=== PATIENT | male | born 1985 | race Caucasian/White ===

== ENCOUNTER 2024-08-20 09:22 | Outpatient (AMB) | payer OTHER, SELFPAY ==
--- NOTE | 2024-08-20 09:46 | A.OFFPC_ITS ---
Vital Signs 08/20/24 09:52 Height 5 ft 11.85 in Weight 235 lb BMI 32.0 BP 122/74 Blood Pressure Location Lt brachial Position Sitting Respiration 16 Pulse 86 Pulse Source Pulse Oximeter Pulse Oximetry (%) 96 Oxygen Delivery Method Room Air Intake Visit Reasons: right arm tendonitis Intake Note: New patient visit. Right arm tendonitis Head Porter Required: No Allergies No Known Allergies Allergy (Verified 08/20/24 09:46) Tobacco use date assessed: 08/20/24 Dental Screening Dental Screen Date: 08/20/24 Did you have a dental visit in the last 12 months?: Yes Did you have a dental problem in the last 6 months where you did not have access to dental care?: No Was dental information given to patient?: Patient has dentist HPI HPI Comments History of Present Illness Details This is a 39-year-old male with no significant past medical history presenting to [facility] care. He has not had a primary care provider in over a decade. He scheduled this appointment to discuss problems with his wrists and hands. He is not sure exactly when symptoms started. He has been using computers more frequently during the past 7-8 years. He also has to lift 25-50 lb loads at work on a regular basis. He plays video games frequently. He endorses pain in his wrists and his fingers. It is associated with intermittent numbness and tingling and he perceives a decrease in his cartridge maker strength. He is right-hand dominant and so the right hand has worse symptoms than the left. He modifies activity as much as he can so that the pain does not become severe. He takes ibuprofen for other aches and pains, but he is unsure if it helps with this. He tried using wrist braces at night but he did not appreciate a difference. Denies swelling or redness associated with symptoms. Denies family history of RA. Denies neck pain associated with this. ROS: Constitutional: No unexplained weight loss, fever, chills or fatigue. Neurologic: No headache, dizziness, ataxia, tremors or seizures. Musculoskeletal: see HPI Skin: No redness. Physical exam: Respiratory: Clear to auscultation. Cardiovascular: S1 S2 regular. No murmurs. Hands/wrists: No visible deformity, discoloration or edema. Positive bilateral Phalen maneuver and Tinel's test. Hands and wrists are nontender to palpation. The right cartridge maker strength is mildly decreased compared to the left. Shoulders: Full range of motion, strength 5/5 bilaterally. Cervical spine: Nontender to palpation, full range of motion. 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 1. Little interest or pleasure in doing things: several days 2. Feeling down, depressed, or hopeless: several days 3. Trouble falling or staying asleep, or sleeping too much: not at all 4. Feeling tired or having little energy: not at all 5. Poor appetite or overeating: not at all 6. Feeling bad about yourself - or that you are a failure or have let yourself or your family down: several days 7. Trouble concentrating on things, such as reading the newspaper or watching television: not at all 8. Moving or speaking so slowly that other people could have noticed. Or the opposite - being so fidgety or restless that you have been moving around a lot more than usual: not at all 9. Thoughts that you would be better off or of hurting yourself in some way: not at all Total score: 3 Depression Screening Interpretation: Positive Depression Screening Done: Yes 65808 - PHQ-9 Billing: Yes Source: Developed by Drs. El Llanes, Niru Henson, Ehsan Pacheco and colleagues, with an educational barbara from [employer]. Thrive Questionnaire Date Thrive assessed: 08/20/24 I am a: Patient What is your living situation today?: I have a steady place to live Within the past 12 months, did the food you bought not last and you didn't have the money to get more?: Never true Within the past 12 months, did you worry whether your food would run out before you got money to buy more?: Never true Do you have trouble paying for medicines?: No Do you have trouble getting transportation to medical appointments?: No Do you have trouble paying your heating and electricity bill?: No Do you have trouble taking care of your child, family member or friend?: No Do you have trouble with day-to-day activities such as bathing, preparing meals, shopping, managing finances, etc.?: No Are you currently unemployed and looking for a job?: No Are you interested in more education?: I choose not to answer this question Please select the resources that you would like help with: None Currently or been in a relationship where the following occur: No concerns reported THRIVE Score: 0 AUDIT C Alcohol Use Questionnaire (AUDIT-C) 1. How often do you have a drink containing alcohol?: Never 3. How often do you have six or more drinks on one occasion?: Never Total Score: 0 VLAD-7 AMB Questionnaire VLAD-7 Date VLAD - 7 assessed: 08/20/24 Feeling nervous, anxious, or on edge: 3 = Nearly every day Not being able to stop or control worryin = More than half the days Worrying too much about different things: 2 = More than half the days Trouble relaxin = More than half the days Being so restless that it is hard to sit still: 0 = Not at all Becoming easily annoyed or irritable: 0 = Not at all Feeling afraid as if something awful might happen: 0 = Not at all Total VALD-7 score (0-4 normal; 5-9 mild; 10-14 moderate; 15-21 severe): 9 Source: Developed by Drs. El Llanes, Niru Henson, Ehsan Pacheco and colleagues, with an educational barbara from [employer]. VLAD-7 Assessment Billing VLAD-7 Assessment Tool: VLAD-7 Assessment 88392 Physical exam (Primary Care) Vital Signs: Last Vital Signs Pulse 86 08/20/24 09:52 Resp 16 10/17/24 09:52 BP 122/74 08/20/24 09:52 Pulse Ox 96 08/20/24 09:52 Oxygen Delivery Method Room Air 08/20/24 09:52 BMI result Body Mass Index 32.0 Tobacco/Smoking Status: Tobacco use Status Tobacco use date assessed 08/20/24 08/20/24 09:55 Patient Tobacco Use Status Former Tobacco user 08/20/24 09:55 e-Cigarette/Vaping Use Former Use (quit 2 years ago 08/20/24 09:55 ) PHQ-9: PHQ-9 Score PHQ-9: Total score 3 08/20/24 10:13 Depression Screening Interpretation: Positive Currently or been in a relationship where the following occur: No concerns reported Coding Level of Care Code New Pt Level 4 (09832) Complex EM visit Add On G2211 Diagnoses Bilateral hand pain M79.641; M79.642 Bilateral carpal tunnel syndrome G56.03 Additional Codes VLAD-7 Assessment Billing - VLAD-7 Assessment Tool: VLAD-7 Assessment 20902 ([id number]) Assessment & Plan Assessment & Plan (1) Bilateral hand pain: Code(s): M79.641 - Pain in right hand; M79.642 - Pain in left hand Category: Medical (2) Bilateral carpal tunnel syndrome: Code(s): G56.03 - Carpal tunnel syndrome, bilateral upper limbs Category: Medical Plan The patient's exam is concerning for bilateral carpal tunnel syndrome. Ordered EMG and bilateral x-rays of the wrists and hands. Refer to hand surgeon. Advised patient he can take [id number] anti-inflammatory medication as needed for pain. We will also check Lyme and rheumatoid factor level. Patient has a physical scheduled next week. Agreeable to fasting labs. Orders: Orders Lipid Panel Today E78.5 - Hyperlipidemia, unspecified, Z00.00 - Encounter for general adult medical examination without abnormal findings, Z13.6 - Encounter for screening for cardiovascular disorders Complete Blood Count Auto Diff Today Z00.00 - Encounter for general adult medical examination without abnormal findings, Z13.6 - Encounter for screening for cardiovascular disorders TSH reflex Free T4 Today Z00.00 - Encounter for general adult medical examination without abnormal findings, Z13.6 - Encounter for screening for cardiovascular disorders XR hand LT min 3V Today G56.03 - Carpal tunnel syndrome, bilateral upper limbs, M79.641 - Pain in right hand, M79.642 - Pain in left hand XR hand RT min 3V Today G56.03 - Carpal tunnel syndrome, bilateral upper limbs, M79.641 - Pain in right hand, M79.642 - Pain in left hand NE electromyogram (EMG) Today G56.03 - Carpal tunnel syndrome, bilateral upper limbs Prostate Specific Antigen Today Z00.00 - Encounter for general adult medical examination without abnormal findings, Z12.5 - Encounter for screening for malignant neoplasm of prostate, Z13.6 - Encounter for screening for cardiovascular disorders Comprehensive Met. Panel Today Z00.00 - Encounter for general adult medical examination without abnormal findings, Z13.6 - Encounter for screening for cardiovascular disorders Rheumatoid Factor Today M79.641 - Pain in right hand, M79.642 - Pain in left hand Lyme IgG/IgM w/reflex to WB Today M79.641 - Pain in right hand, M79.642 - Pain in left hand XR wrist RT min 3V Today G56.03 - Carpal tunnel syndrome, bilateral upper limbs, M79.641 - Pain in right hand, M79.642 - Pain in left hand XR wrist LT min 3V Today G56.03 - Carpal tunnel syndrome, bilateral upper limbs, M79.641 - Pain in right hand, M79.642 - Pain in left hand Referrals Hand Surgery Referral G56.03 - Carpal tunnel syndrome, bilateral upper limbs, M79.641 - Pain in right hand, M79.642 - Pain in left hand
[2024-08-20 09:52] VITALS: BP 122/74; PULSE 86; RESP 16; O2SAT 96; BMI 32.0
== END 2024-08-20 10:25 | disposition home or self-care (01) ==
PROVIDERS: PCP Physician Assistant Medical; Visit Provider Physician Assistant Medical
DX: M79.641 Pain in right hand (principal); M79.642 Pain in left hand; G56.03 Carpal tunnel syndrome, bilateral upper limbs

== ENCOUNTER → 2024-08-20 09:22 | Outpatient (BNVA) | payer OTHER, SELFPAY | PROVIDERS: PCP Physician Assistant Medical; Visit Provider Physician Assistant Medical | DX: M79.641 Pain in right hand (principal); M79.642 Pain in left hand; G56.03 Carpal tunnel syndrome, bilateral upper limbs | CPT/HCPCS: 96127 ==

== ENCOUNTER 2024-08-22 07:23 | Outpatient (REF) | payer OTHER, SELFPAY ==
[2024-08-22 07:56] LABS: MANUAL DIFF FLAG NO
[2024-08-22 08:51] LABS: Basophils Absolute Auto 0.1 X10*3/uL (0.0-0.2); Basophils Percent Auto 0.9 % (0-2); Eosinophils Absolute Auto 0.1 X10*3/uL (0.0-0.4); Eosinophils Percent Auto 2.5 % (0-4); Hematocrit 44.8 % (42.0-52.0); Hemoglobin 14.7 g/dl (14.0-18.0); Imm Gran Abs Auto 0.02 X10*3/uL (0.00-0.03); Imm Gran Pct Auto 0.4 % (0.0-0.4); Lymphocytes Absolute Auto 1.2 X10*3/uL (1.2-4.9); Lymphocytes Percent Auto 22.2 % (20-40); Mean Corpuscular HGB Conc 32.8 g/dl (31.0-36.0); Mean Corpuscular Hemoglobin 29.6 pg (27.0-33.0); Mean Corpuscular Volume 90.3 fL (80.0-98.0); Mean Platelet Volume 11.8 fL (9.4-12.4); Monocytes Absolute Auto 0.4 X10*3/uL (0.1-1.2); Monocytes Percent Auto 6.9 % (2-11); Neutrophils Absolute Auto 3.7 x10*3/uL (2.0-8.3); Neutrophils Percent Auto 67.1 % (45-73); Platelet Count 245 X10*3/uL (160-400); Red Blood Count 4.96 X10*6/uL (4.60-5.80); Red Cell Distribution Width 13.1 % (11.0-16.0); White Blood Count 5.5 X10*3/uL (4.8-10.8)
[2024-08-22 09:25] LABS: Alanine Aminotransferase 20 U/L (0-40); Albumin Level 4.3 g/dL (3.5-5.0); Alkaline Phosphatase 99 U/L (39-117); Anion Gap 12 (12-20); Aspartate Amino Transferase 29 U/L (5-37); Blood Urea Nitrogen 10 mg/dL (9-16); Calcium 9.2 mg/dL (8.4-10.2); Carbon Dioxide 25 mmol/L (22-29); Chloride 107 mmol/L (96-108); Cholesterol 166 mg/dL (<200); Estimated Glomerular Filt Rate > 60; Glucose Random 84 mg/dL (60-115); HDL Cholesterol 46 mg/dL (>40); LDL Cholesterol Calculated 111 mg/dL (<100); Potassium 4.3 mmol/L (3.3-5.1); Sodium 140 mmol/L (135-145); Total Protein 7.4 g/dL (6.5-8.0); Triglycerides 46 mg/dL (<150)
[2024-08-22 09:29] LABS: Rheumatoid Factor < 13.0 IU/mL (<15.0)
[2024-08-22 09:35] LABS: Prostate Specific Antigen 0.98 ng/mL (<0.05-4.0)
[2024-08-22 09:45] LABS: TSH reflex Free T4 1.24 uIU/mL (0.32-4.0)
[2024-08-24 16:44] LABS: Lyme Abs Screen <0.90 index
== END 2024-08-22 07:24 | disposition home or self-care (01) ==
LOC: HO.XRAY 07:23
PROVIDERS: PCP Physician Assistant Medical; Visit Provider Physician Assistant Medical
DX: Z00.00 Encounter for general adult medical examination without abnormal findings (principal); M79.641 Pain in right hand; M79.642 Pain in left hand; Z13.6 Encounter for screening for cardiovascular disorders; E78.5 Hyperlipidemia, unspecified; Z12.5 Encounter for screening for malignant neoplasm of prostate
CPT/HCPCS: 36415; 73110; 73130; 80053; 80061; 84153; 84443; 85025; 86431; 86617; 86618

== ENCOUNTER 2024-08-24 11:53 | Outpatient (AMB) | payer OTHER, SELFPAY ==
--- NOTE | 2024-08-24 12:03 | A.OFFPC_ITS ---
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 We reviewed his lab results that he had done over the weekend which are normal. X-rays have not been read. He was referred to the hand surgeon for suspected carpal tunnel syndrome, and EMG is pending. Patient says for the past couple of years he has had a difficulty with breathing. Patient says that he will intermittently feel like when he breathes he is not getting a full breath and he has to exhale forcefully. He says it feels like a tic. He says it seems stress related because it went away when he was going through a period where he did not have any stress. It does not happen at night or wake him from sleep. He denies wheezing, cough, shortness of breath, chest pain and hemoptysis. He smoked 2 packs per day for 10 years and then switched to vaping for 5 years and stopped this 2 years ago. He has an eye exam scheduled 10/03/24. He is UTD with dental exams. He is getting flu vaccine and a COVID-19 booster in September. He will get a Tetatnus at another time. ROS: Constitutional: No unexplained weight loss, fever, chills, fatigue or night sweats. Eyes: No vision changes, blurry vision, double vision, eye pain, eye redness, eye discharge. ENT: No hearing loss, sneezing, congestion, runny nose or sore throat. Respiratory: No shortness of breath, cough or sputum production. See HPI. Cardiovascular: No chest pain, chest pressure or chest discomfort. No palpitations or pedal edema. Gastrointestinal: No anorexia, nausea, vomiting or diarrhea. No abdominal pain or blood in stool. Genitourinary: No dysuria, hematuria, urinary frequency. Neurologic: No headache, dizziness, syncope, unilateral weakness, ataxia. Musculoskeletal: Bilateral hand and wrist pain discussed at recent office visit. See HPI. Hematologic/Lymphatics: No bleeding or bruising. No painful lymph nodes. Skin: No rash or itching. Endocrine: No cold or heat intolerance. No polyuria or polydipsia. Psychiatric: Patient endorses history of chronic depression and anxiety, but he says he has good coping strategies. He has been in therapy and may restart it. Physical exam: Constitutional: Alert, in no distress. Head: Normocephalic. Eyes: Pupils are equal, round and reactive to light. Extraocular muscles intact. Ear, Nose and Throat: Excessive cerumen in canals. Visualized portions of TMs normal. Normal nasal mucosa. No nasal discharge. No oral lesions. Neck: Supple, Full range of motion. No lymphadenopathy. No palpable thyroid masses. Respiratory: Clear to auscultation. Breathing is nonlabored. Speaking in full sentences. No dyspnea. Cardiovascular: S1 S2 regular. No murmurs. No carotid bruits. Gastrointestinal: Abdomen soft, non-tender, non-distended. Normal bowel sounds. No palpable masses. Genitourinary: Patient deferred. Neurologic: No focal neurological deficits. Symmetric patellar reflexes. Moves all extremities spontaneously. Sensation intact bilaterally. Skin: No rashes or lesions. Musculoskeletal: No gross deformities. Normal range of motion. Extremities: Warm and well perfused. No clubbing, cyanosis or edema. 3+ peripheral pulses bilaterally. 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 Current occupational exposures/hazards: Yes (pesticides, concentrates, poison) Cognitive needs: No Hearing needs: Yes (possible high frequency hearing loss) Vision needs: Yes (glasses) Questionnaire Thrive Questionnaire Date Thrive assessed: 08/20/24 I am a: Patient What is your living situation today?: I have a steady place to live Within the past 12 months, did the food you bought not last and you didn't have the money to get more?: Never true Within the past 12 months, did you worry whether your food would run out before you got money to buy more?: Never true Do you have trouble paying for medicines?: No Do you have trouble getting transportation to medical appointments?: No Do you have trouble paying your heating and electricity bill?: No Do you have trouble taking care of your child, family member or friend?: No Do you have trouble with day-to-day activities such as bathing, preparing meals, shopping, managing finances, etc.?: No Are you currently unemployed and looking for a job?: No Are you interested in more education?: I choose not to answer this question Please select the resources that you would like help with: None Currently or been in a relationship where the following occur: No concerns reported THRIVE Score: 0 VLAD-7 AMB Questionnaire VLAD-7 Date VLAD - 7 assessed: 08/20/24 Becoming easily annoyed or irritable: 0 = Not at all Source: Developed by Drs. El Llanes, Niru Henson, Ehsan Pacheco and colleagues, with an educational barbara from [employer]. Physical exam (Primary Care) Vital Signs: Last Vital Signs Pulse 78 08/24/24 12:04 BP 116/62 08/24/24 12:04 Pulse Ox 99 08/24/24 12:04 Oxygen Delivery Method Room Air 08/24/24 12:04 BMI result Body Mass Index 31.8 Tobacco/Smoking Status: Tobacco use Status Tobacco use date assessed 08/20/24 08/24/24 12:06 Patient Tobacco Use Status Former Tobacco user 08/24/24 12:06 e-Cigarette/Vaping Use Former Use (quit 2 years ago 08/24/24 12:06 ) Thrive Assessment: Date of Thrive Assessment Date Thrive assessed 08/20/24 08/24/24 12:06 Currently or been in a relationship where the following occur: No concerns reported Coding Level of Care Code Est Pt Prev Care 40-64y(77762) Diagnoses Routine physical examination Z00.00 Breathing problem R06.9 Assessment & Plan Assessment & Plan (1) Routine physical examination: Code(s): Z00.00 - Encounter for general adult medical examination without abnormal findings Plan: Patient is seen today for a routine physical. As part of this visit we reviewed the following issues, which are considered and essential part of preventative health in this age group: - Testicular cancer screening, which includes self exam teaching - Blood pressure screening annually - Cholesterol screening - Nutritional and exercise counseling - Counseling of injury prevention including fire prevention, smoke alarms and seat belt usage - Screening for depression - Prevention of and/or testing for infectious diseases - Education about skin cancer - Recommendations about immunizations - Recommendation of an eye exam - Screening for substance abuse (2) Breathing problem: Code(s): R06.9 - Unspecified abnormalities of breathing Category: Medical Plan: Possibly vocal cord dysfunction based on his description. Differential includes asthma, bronchospasm, anxiety. Malignancy less likely since patient has no constitutional symptoms, and these symptoms resolved when he went through a period where he did not have stress. Lungs are clear to auscultation. We will check PFT and chest x-ray and follow up. If workup is nondiagnostic we will refer to pulmonology. Plan Follow up in 8 weeks. Orders: Orders PFT pulmonary function test Today R06.9 - Unspecified abnormalities of breathing XR chest 2V Today R06.9 - Unspecified abnormalities of breathing
[2024-08-24 12:04] VITALS: BP 116/62; PULSE 78; O2SAT 99; BMI 31.8
== END 2024-08-24 12:49 | disposition home or self-care (01) ==
PROVIDERS: PCP Physician Assistant Medical; Visit Provider Physician Assistant Medical
DX: Z00.00 Encounter for general adult medical examination without abnormal findings (principal); R06.9 Unspecified abnormalities of breathing

== ENCOUNTER → 2024-08-24 11:53 | Outpatient (BNVA) | payer OTHER, SELFPAY | PROVIDERS: PCP Physician Assistant Medical; Visit Provider Physician Assistant Medical ==

== ENCOUNTER 2024-11-05 12:53 | Outpatient (REF) | payer OTHER, SELFPAY ==
[2024-11-05 09:36] VITALS: PULSE 81; O2SAT 97
--- NOTE | 2024-11-05 12:59 | PFT_ITS ---
Indication: Dyspnea Spirometry [FEV1 to FVC 80%; FEV1 5.5 L; FVC 6.91 L. No significant response to bronchodilators noted.] Lung Volumes [Total lung capacity 114% predicted; residual volume 130% predicted] Diffusion Capacity [DLCO 105% predicted] Comparisons [None] Interpretation [No obstructive nor restrictive ventilatory defects identified. No significant response to bronchodilators noted. Lung volumes with a trend of hyperinflation and significant air trapping likely secondary to small airways disease. Diffusing capacity is within normal limits. If asthma is in the differential methacholine challenge may be helpful seen for hyperreactive airways. Clinical correlation warranted.] MTDD
--- NOTE | 2024-11-05 13:42 | EMG_ITS ---
Chief complaint: Bilateral hand numbness, on and off for the past year, more consistent in the past month Reason for referral: Evaluate for Carpal Tunnel Syndrome Referred by: Varsha LOPES Procedure done: Bilateral upper extremities NCS/EMG Precautions and/or limitations: None The limb temperature was monitored continuously and remained between 32-36 degrees C during the performance of the NCS. Nerve Conduction Studies Anti Sensory Summary Table ?Stim Site NR Onset (ms) Norm Onset (ms) Peak (ms) Norm Peak (ms) O-P Amp (?V) Norm O-P Amp Site1 Site2 Delta-0 (ms) Dist (cm) Jass (m/s) Norm Jass (m/s) Left Median Anti Sensory (2nd Digit) Wrist ? 3.0 3.6 <3.6 28.4 >10 Wrist 2nd Digit 3.0 14.0 47 Right Median Anti Sensory (2nd Digit) Wrist ? 2.5 3.2 <3.6 37.6 >10 Wrist 2nd Digit 2.5 14.0 56 Left Ulnar Anti Sensory (5th Digit) Wrist ? 2.3 3.0 <3.7 28.7 >15.0 Wrist 5th Digit 2.3 14.0 61 Right Ulnar Anti Sensory (5th Digit) Wrist ? 2.2 2.9 <3.7 34.1 >15.0 Wrist 5th Digit 2.2 14.0 64 Motor Summary Table ?Stim Site NR Onset (ms) Norm Onset (ms) O-P Amp (mV) Norm O-P Amp iAmp (mV) Amp (1st) (%) Site1 Site2 Delta-0 (ms) Dist (cm) Jass (m/s) Norm Jass (m/s) Left Median Motor (Abd Poll Brev) Wrist ? 3.8 <3.9 8.9 >4.5 10.7 100.0 Elbow Wrist 5.3 25.0 47 >45 Elbow ? 9.1 9.7 11.3 109.0 Right Median Motor (Abd Poll Brev) Wrist ? 3.5 <3.9 9.8 >4.5 11.2 100.0 Elbow Wrist 4.7 24.5 52 >45 Elbow ? 8.2 10.3 12.0 105.1 Left Ulnar Motor (Abd Dig Minimi) Wrist ? 2.7 <3.0 5.9 >5 6.9 100.0 B Elbow Wrist 4.2 23.0 55 >45 B Elbow ? 6.9 5.1 6.2 86.4 A Elbow B Elbow 1.8 10.0 56 >45 A Elbow ? 8.7 4.9 6.1 83.1 Right Ulnar Motor (Abd Dig Minimi) Wrist ? 2.6 <3.0 11.5 >5 13.9 100.0 B Elbow Wrist 4.4 24.0 55 >45 B Elbow ? 7.0 10.0 12.2 87.0 A Elbow B Elbow 1.2 10.0 83 >45 A Elbow ? 8.2 9.5 11.7 82.6 Comparison Summary Table ?Stim Site NR Peak (ms) Norm Peak (ms) P-T Amp (?V) Site1 Site2 Delta-P (ms) Norm Delta (ms) Left Median/Radial Dig I Comparison (Digit 1 - 10cm) Median ? 2.1 <2.9 6.7 Median Radial 0.3 Radial ? 2.4 <2.8 10.0 Right Median/Radial Dig I Comparison (Digit 1 - 10cm) Median ? 2.6 <2.9 47.0 Median Radial 0.2 Radial ? 2.4 <2.8 20.9 EMG ?Side Muscle Nerve Root Ins Act Fibs Psw Amp Dur Poly Recrt Int Pat Comment Right 1stDorInt Ulnar C8-T1 Nml Nml Nml Nml Nml 0 Nml Complete Right FlexCarRad Median C6-7 Nml Nml Nml Nml Nml 0 Nml Complete Right Biceps Musculocut C5-6 Nml Nml Nml Nml Nml 0 Nml Complete Right Triceps Radial C6-7-8 Nml Nml Nml Nml Nml 0 Nml Complete Right Deltoid Axillary C5-6 Nml Nml Nml Nml Nml 0 Nml Complete Left 1stDorInt Ulnar C8-T1 Nml Nml Nml Nml Nml 0 Nml Complete Left FlexCarRad Median C6-7 Nml Nml Nml Nml Nml 0 Nml Complete Left Biceps Musculocut C5-6 Nml Nml Nml Nml Nml 0 Nml Complete Left Triceps Radial C6-7-8 Nml Nml Nml Nml Nml 0 Nml Complete Left Deltoid Axillary C5-6 Nml Nml Nml Nml Nml 0 Nml Complete FINDINGS: All motor and sensory nerves tested showed normal latencies, amplitudes and conduction velocities. Concentric needle EMG was performed in selected muscles of the bilateral upper extremities. Study did not reveal signs of electric abnormalities as shown in the table above. IMPRESSION: 1. This is a normal study. 2. There is no electrodiagnostic evidence for median neuropathy, ulnar neuropathy, brachial plexopathy, or cervical radiculopathy. Thank you for your kind referral. Myrna Portillo MD, JOHNNIE Board Certified, [place] Board of Physical Medicine and Rehabilitation (ABPMR) Board Certified, [place] Board of Electrodiagnostic Medicine (ABEM) CODIN [phone] x 2 MTDD
== END 2024-11-05 12:54 | disposition home or self-care (01) ==
LOC: HO.RESP 12:53
PROVIDERS: PCP Physician Assistant Medical; Visit Provider Physician Assistant Medical
DX: R06.9 Unspecified abnormalities of breathing (principal); G56.03 Carpal tunnel syndrome, bilateral upper limbs
CPT/HCPCS: 94010; 94640; 94727; 94729; 95886; 95911

== ENCOUNTER → 2024-11-05 12:59 | Outpatient (BNV) | payer OTHER, SELFPAY | PROVIDERS: PCP Physician Assistant Medical; Visit Provider Hospitalist | DX: R06.09 Other forms of dyspnea (principal) | CPT/HCPCS: 94060; 94727; 94729 ==

== ENCOUNTER → 2024-11-05 13:42 | Outpatient (BNV) | payer OTHER, SELFPAY | PROVIDERS: PCP Physician Assistant Medical; Visit Provider Physical Medicine & Rehabilitation | DX: G56.01 Carpal tunnel syndrome, right upper limb (principal) | CPT/HCPCS: 95886; 95909 ==

== ENCOUNTER 2024-11-12 09:41 | Outpatient (REF) | payer OTHER, SELFPAY ==
--- NOTE | ~2024-11-12 | XR_ITS ---
CLINICAL HISTORY: R06.9 - Unspecified abnormalities of breathing 2 view chest x-ray Comparison: None Findings: The lungs are clear. Normal size heart. No acute fracture. IMPRESSION: 1. No acute findings. This document has been electronically signed by: Nilesh So MD on 11/13/2024 08:37:28
--- NOTE | ~2024-11-12 | XR_ITS ---
CLINICAL HISTORY: M79.641 - Pain in right hand 4 view right wrist Comparison: None Findings: No fractures or dislocations. No significant arthritic change or erosions. No radiopaque foreign body. IMPRESSION: 1. No acute findings This document has been electronically signed by: Nilesh So MD on 11/13/2024 08:38:11
--- NOTE | ~2024-11-12 | XR_ITS ---
CLINICAL HISTORY: M79.641 - Pain in right hand 4 view left wrist Comparison: None Findings: No fractures or dislocations. No significant loss of joint space, osteophyte, or erosions. No radiopaque foreign body. IMPRESSION: 1. No acute findings This document has been electronically signed by: Nilesh So MD on 11/13/2024 08:37:54
== END 2024-11-12 09:42 | disposition home or self-care (01) ==
LOC: HO.XRAY 09:41
PROVIDERS: PCP Physician Assistant Medical; Visit Provider Physician Assistant Medical
DX: M79.641 Pain in right hand (principal); M79.642 Pain in left hand; G56.03 Carpal tunnel syndrome, bilateral upper limbs; R06.9 Unspecified abnormalities of breathing
CPT/HCPCS: 71046; 73110

== ENCOUNTER → 2024-11-12 09:44 | Outpatient (BNV) | payer OTHER, SELFPAY | PROVIDERS: PCP Physician Assistant Medical; Visit Provider Specialist | DX: M79.641 Pain in right hand (principal); M79.642 Pain in left hand; R06.89 Other abnormalities of breathing | CPT/HCPCS: 71046; 73110 ==

== ENCOUNTER 2024-12-08 08:56 | Outpatient (AMB) | payer OTHER, SELFPAY ==
--- NOTE | 2024-12-08 09:03 | MHC.OFFVIS ---
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 states his right is worse. States he is having CTS that comes and goes. States its worse when he is lifting. He wears a brace for his right hand only at night. He recalls about 5-6 yrs ago he hyper extended his thumb and believes this might be the cause to his numbness. ROM is ok but painful at time. Denies O.T, injections or surgery to hands. EMG done. 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 He complains of pain primarily in his hands, but says this occasionally extends into his forearms and elbows. He says this began in the last few years, but has worsened in the last year. He also complains of tingling in his hands. Symptoms intermittent, worse with activities such as heavy lifting or other work at his job. He wears a right wrist brace at night and denies any other treatment options. He says his symptoms also worsen with extensive video game playing He denies any gait abnormality, but says he has occasional numbness in his feet. He says he hyperextended his right thumb in ~2019, and has had painful ROM of his thumb occasionally. 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 Current occupational exposures/hazards: Yes (pesticides, concentrates, poison) Cognitive needs: No Hearing needs: Yes (possible high frequency hearing loss) Vision needs: Yes (glasses) Review of Systems Const All systems reviewed & are unremarkable except as noted in HPI and below Physical Exam Vital Signs: BMI result Body Mass Index 33.5 Const General: cooperative, healthy appearing and no acute distress Orientation/consciousness: patient oriented x3 HEENT Head: Yes normocephalic and Yes atraumatic Eyes EOM: EOMs intact bilaterally Resp Effort & Inspection: normal respiratory effort and able to speak in complete sentences Cardio Jugular venous distension: no JVD Skin General skin exam: turgor normal Rashes: no rashes Neuro General: patient oriented x3 Extrem Other: Evaluation of Bilateral Upper Extremity: The patient is alert, oriented, and in no acute distress Neuro: Median, Ulnar, Radial nerves motor and sensory intact and sensation is normal to the tips of all digits No thenar or intrinsic wasting Good APB muscle belly firing and good finger cross Vascular: Cap refill brisk ROM: He can make a fist and extend all his digits No locking or catching Full & symmetrical wrist ROM without pain Skin: No lacerations or abrasions. General: No Ecchymosis. No Erythema or evidence of infection. No swelling Patient complains of occasional pain radiating up his mid forearms into his elbow No pain today while in clinic. No tenderness or pain elicited while today in clinic Radiographs: 3 views of the bilateral wrist from 11/13/24 were reviewed by me today in clinic. They show no fractures, dislocations, or arthritic changes. Nerve Conduction Study: IMPRESSION: 1. This is a normal study. 2. There is no electrodiagnostic evidence for median neuropathy, ulnar neuropathy, brachial plexopathy, or cervical radiculopathy. Myrna Portillo MD, JOHNNIE 11/05/24 Psych Appearance: grossly normal Affect: normal affect Attitude: cooperative Assessment & Plan Assessment & Plan (1) Bilateral hand pain: Code(s): M79.641 - Pain in right hand; M79.642 - Pain in left hand Category: Medical (2) Bilateral hand numbness: Code(s): R20.0 - Anesthesia of skin Category: Medical Plan Assessment & Plan: 1. Bilateral hand pain Radiating into mid-forearm & elbows Intermittent but daily I educated him about this condition I discussed activity modification with him He will be mindful of which activities are causing him the most pain, and try to modify these accordingly I ordered OT hand therapy to work on normalizing hand function No other intervention indicated at this time He will follow up prn 2. Bilateral hand tingling Patient reports intermittent tingling to all digits bilaterally, worse with activities NCS from 11/05/24 was normal I educated him about carpal & cubital tunnel syndrome He will be mindful of his symptoms going forward, and for any changes in his sensation No surgical intervention indicated at this time If his symptoms persist or worsen we may consider a repeat NCS in the future Scribed for Bernie Herrera MD by Ramirez Leiva, bacteriologist medical, on 12/08/24 at 9:30 AM, EST. Orders: Orders OT Evaluation and Treatment Today M79.641 - Pain in right hand, M79.642 - Pain in left hand, R20.0 - Anesthesia of skin Coding Level of Care Code New Pt Level 4 (31601) Diagnoses Bilateral hand pain M79.641; M79.642 Bilateral hand numbness R20.0
[2024-12-08 09:05] VITALS: BMI 33.5
== END 2024-12-08 09:43 | disposition home or self-care (01) ==
PROVIDERS: PCP Physician Assistant Medical; Visit Provider Orthopaedic Surgery
DX: M79.641 Pain in right hand (principal); M79.642 Pain in left hand; R20.0 Anesthesia of skin
CPT/HCPCS: 99204

== ENCOUNTER → 2024-12-08 08:56 | Outpatient (BNVA) | payer OTHER, SELFPAY | PROVIDERS: PCP Physician Assistant Medical; Visit Provider Orthopaedic Surgery ==

== ENCOUNTER 2024-12-14 09:26 | Outpatient (AMB) | payer OTHER, SELFPAY ==
--- NOTE | 2024-12-13 12:39 | MHC.OFFVIS ---
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 He also reported vaping x 5 years, quit 2 years ago. He was referred by PCP for pulmonary evaluation for ongoing dyspnea. He reports intermittent inability to fully inspire with associated dry cough and PCP recently sent for PFT, which was suggestive of asthma. He denies any dyspnea, wheezing, or chest tightness. He denies prior dx of asthma/COPD. He endorses seasonal allergies, no recent allergy testing. Using Zyrtec daily with good effect. He has a dog at home. 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 He does use a Tyvek suit and respirator. He does note that he has become more sensitive to chemicals over the years. He reports son with asthma, otherwise denies any pertinent family history. Of note, he stated that he was treated for TB as a child. Recent CXR unremarkable. 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 Current occupational exposures/hazards: Yes (pesticides, concentrates, poison) Cognitive needs: No Hearing needs: Yes (possible high frequency hearing loss) Vision needs: Yes (glasses) Review of Systems Const Denies chills, Denies excessive sweating, Denies fever(s), Denies headache(s) and Denies night sweats Eyes Denies dry eyes and Reports itchy eyes ENT Reports Normal hearing present, Denies headache(s), Reports nasal congestion, Reports nasal discharge, Reports post nasal drip and Denies sore throat Card Denies chest pain, Denies chest pain at rest, Denies chest pain with activity, Denies claudication, Denies leg edema, Denies dyspnea, Denies dyspnea on exertion, Denies orthopnea and Denies paroxysmal nocturnal dyspnea Resp Denies change in phlegm color, Denies chest congestion, Reports cough, Denies hemoptysis, Denies excessive phlegm production, Denies pain on inspiration, Denies pain with cough, Denies dyspnea, Denies dyspnea on exertion, Denies stridor and Denies wheezing Musc Denies myalgias Neuro Reports Normal hearing present and Denies headache(s) Endo Denies excessive sweating Suhail/Lymph Denies lymphadenopathy Aller/Immun Reports itchy eyes and Denies wheezing Physical Exam Vital Signs: Last Vital Signs Pulse 88 12/14/24 09:27 BP 114/66 12/14/24 09:27 Pulse Ox 100 12/14/24 09:27 Oxygen Delivery Method Room Air 12/14/24 09:27 BMI result Body Mass Index 34.1 Const General: cooperative, healthy appearing, comfortable, no acute distress, well developed and alert Nutritional Appearance: obese Orientation/consciousness: patient oriented x3 Limitations: no limitations HEENT Head: Yes normal to inspection, Yes normocephalic and Yes atraumatic Ears: hearing grossly normal bilaterally and external ears normal Eyes General: appearance normal, both eyes and all related structures Eyelids: Yes eyelids normal Sclerae: sclerae normal EOM: EOMs intact bilaterally Neck Neck: Yes normal visual inspection and Yes no lymphadenopathy Lymphatic: no lymphadenopathy noted Chest Chest palpation & inspection: normal inspection of the chest Resp Effort & Inspection: normal respiratory effort, able to speak in complete sentences, no audible wheezes, no cough, no stridor, not tachypneic, no tripod positioning and no use of accessory muscles Auscultation: diminished lung sounds Cardio Jugular venous distension: no JVD Rate: regular rate Rhythm: regular rhythm Skin Other: warm, dry General skin exam: no rashes or lesions noted Neuro General: patient oriented x3 Cranial nerves: Yes Normal hearing present Cognition (Neuro): normal cognition Gait exam (Neuro): Normal gait present Extrem General: Yes normal to inspection, Yes capillary refill normal, Yes no clubbing, cyanosis or edema and Yes no pedal edema Psych Appearance: grossly normal and well kempt Speech and movement: Normal speech and movement present and Clear speech present Affect: normal affect Attitude: cooperative Thought process: Normal thought process present Thought content: Normal thought content present Insight: Good insight present (Psych) Judgement: Good judgement present (Psych) Results Reviewed Results Reviewed: [address] [address] XRay Report Signed Patient: Daryn Barrera MR#: [id number] : 1985 Acct:[id number] Age/Sex: 39 / M ADM Date: 11/12/24 Loc: [facility] Attending Dr: Maisha LOPES Ordering Physician: Maisha Cloud Date of Service: 11/12/24 Procedure(s): XR chest 2V Accession Number(s): [id number] cc: Maisha Cloud~ CLINICAL HISTORY: R06.9 - Unspecified abnormalities of breathing 2 view chest x-ray Comparison: None Findings: The lungs are clear. Normal size heart. No acute fracture. IMPRESSION: 1. No acute findings. This document has been electronically signed by: Nilesh So MD on 11/13/2024 08:37:28 Dictated By: Nilesh So MD Signed By: <Electronically signed by Nilesh So MD in OV> 11/13/24837 DD/ 6 TD/TT: 11/13/24836 Distribution Superintendent: Assessment & Plan Assessment & Plan (1) Asthma: Code(s): J45.909 - Unspecified asthma, uncomplicated Category: Medical (2) Personal history of tobacco use: Code(s): Z87.891 - Personal history of nicotine dependence Category: Social Hx (3) Environmental allergies: Code(s): Z91.09 - Other allergy status, other than to drugs and biological substances Category: Medical (4) Exposure to silica: Code(s): Z77.29 - Contact with and (suspected) exposure to other hazardous substances Category: Medical (5) Chronic cough: Code(s): R05.3 - Chronic cough Category: Medical Plan Reviewed PFT which revealed no obstructive nor restrictive ventilatory defects identified. No significant response to bronchodilators noted, except in small to medium airways. Lung volumes with a trend of hyperinflation and significant air trapping likely secondary to small airways disease. Diffusing capacity is within normal limits. Will empirically start on Breo. Discussed importance of good oral hygiene to prevent thrush. Will also send for RAST to assess for an allergic component. Prior CXR unremarkable, however patient with significant chemical exposures, specifically silica and worsening respiratory symptoms. Will send for chest CT to evaluate for underlying parenchymal condition. All questions were answered and patient is in agreement of plan. Will follow up in 6-8 weeks or sooner if needed. Orders: Orders CT chest wo IV con Today R05.3 - Chronic cough, Z77.29 - Contact with and (suspected) exposure to other hazardous substances, Z87.891 - Personal history of nicotine dependence Resp Allergy Profile Region I Today Z91.09 - Other allergy status, other than to drugs and biological substances Complete Blood Count Auto Diff Today Z91.09 - Other allergy status, other than to drugs and biological substances Immunoglobulin E Today Z91.09 - Other allergy status, other than to drugs and biological substances Medications: New fluticasone furoate-vilanterol 100-25 mcg/dose (Breo Ellipta) 1 inh inhalation DAILY 60 ea 3RF Coding Level of Care Code New Pt Level 4 (07657) Diagnoses Asthma J45.909 Personal history of tobacco use Z87.891 Environmental allergies Z91.09 Exposure to silica Z77.29 Chronic cough R05.3
[2024-12-14 09:27] VITALS: BP 114/66; PULSE 88; O2SAT 100; BMI 34.1
== END 2024-12-14 10:07 | disposition home or self-care (01) ==
PROVIDERS: PCP Physician Assistant Medical; Referring Provider Physician Assistant Medical; Visit Provider Nurse Practitioner Family
DX: J45.909 Unspecified asthma, uncomplicated (principal); Z87.891 Personal history of nicotine dependence; Z91.09 Other allergy status, other than to drugs and biological substances; Z77.29 Contact with and (suspected) exposure to other hazardous substances; R05.3 Chronic cough
CPT/HCPCS: 99204

== ENCOUNTER 2024-12-14 09:26 | Outpatient (REF) | payer OTHER, SELFPAY ==
[2024-12-14 10:30] LABS: MANUAL DIFF FLAG NO
[2024-12-14 10:45] LABS: Basophils Absolute Auto 0.1 X10*3/uL (0.0-0.2); Basophils Percent Auto 0.8 % (0-2); Eosinophils Absolute Auto 0.2 X10*3/uL (0.0-0.4); Eosinophils Percent Auto 2.7 % (0-4); Hematocrit 43.8 % (42.0-52.0); Hemoglobin 14.3 g/dl (14.0-18.0); Imm Gran Abs Auto 0.03 X10*3/uL (0.00-0.03); Imm Gran Pct Auto 0.5 % (0.0-0.4); Lymphocytes Absolute Auto 1.4 X10*3/uL (1.2-4.9); Lymphocytes Percent Auto 20.9 % (20-40); Mean Corpuscular HGB Conc 32.6 g/dl (31.0-36.0); Mean Corpuscular Hemoglobin 29.5 pg (27.0-33.0); Mean Corpuscular Volume 90.5 fL (80.0-98.0); Mean Platelet Volume 10.9 fL (9.4-12.4); Monocytes Absolute Auto 0.4 X10*3/uL (0.1-1.2); Monocytes Percent Auto 6.6 % (2-11); Neutrophils Absolute Auto 4.6 x10*3/uL (2.0-8.3); Neutrophils Percent Auto 68.5 % (45-73); Platelet Count 227 X10*3/uL (160-400); Red Blood Count 4.84 X10*6/uL (4.60-5.80); Red Cell Distribution Width 12.8 % (11.0-16.0); White Blood Count 6.7 X10*3/uL (4.8-10.8)
[2024-12-18 22:44] LABS: Class Alternaria alternata 0; Class Aspergillus fumigatus 0; Class Bermuda Grass 0; Class Birch 1; Class Cat Dander 0; Class Cladosporium herbarum 0; Class Cockroach 0; Class Common Ragweed 0; Class Cottonwood 0; Class Derm. pterony 0/1; Class Dermatophagoides farinae 0; Class Dog Dander 0; Class Elm 0; Class Maple Box Elder 0; Class Mountain Cedar 0; Class Mouse Urine Protein 0; Class Mugwort 0; Class Oak 0/1; Class Penicillium crysogenum 0; Class Rough Pigweed 0; Class Sheep Sorrel 0; Class Sycamore 0; Class Timothy Grass 0/1; Class Walnut Tree 0; Class White Ash 0; Class White Mulberry 0; D002 - IgE D farinae <0.10 kU/L; E001 - IgE Cat Dander <0.10 kU/L; E005 - IgE Dog Dander <0.10 kU/L; E072-IgE Mouse Urine <0.10 kU/L; G002 IgE Bermuda Grass <0.10 kU/L; G006 - IgE Timothy Grass 0.12 kU/L; I006-IgE Cockroach, German <0.10 kU/L; Immunoglobulin E 24 kU/L (<OR=114); M001 IgE Penicillium chrysogen <0.10 kU/L; M002 - IgE Cladosporium herbar <0.10 kU/L; M003 - IgE Aspergillus fumigat <0.10 kU/L; M006 - IgE Alternaria alternat <0.10 kU/L; T001 IgE Maple/Box Elder <0.10 kU/L; T003 IgE Common Silver Birch 0.48 kU/L; T006 - IgE Cedar, Mountain <0.10 kU/L; T007 - IgE Oak, White 0.32 kU/L; T008 IgE Elm, American <0.10 kU/L; T010 - IgE Walnut <0.10 kU/L; T011 - IgE Maple Leaf Sycamore <0.10 kU/L; T014 - IgE Cottonwood <0.10 kU/L; T015 - IgE Ash, White <0.10 kU/L; T070 - IgE White Mulberry <0.10 kU/L; W001 - IgE Ragweed, Short <0.10 kU/L; W006 - IgE Mugwort <0.10 kU/L; W014 IgE Pigweed, Common <0.10 kU/L; W018 IgE Sheep Sorrel <0.10 kU/L
== END 2024-12-14 09:27 | disposition home or self-care (01) ==
LOC: HO.LAB 09:26
PROVIDERS: PCP Physician Assistant Medical; Referring Provider Physician Assistant Medical; Visit Provider Nurse Practitioner Family
DX: Z91.09 Other allergy status, other than to drugs and biological substances (principal)
CPT/HCPCS: 36415; 82785; 85025; 86003

== ENCOUNTER 2024-12-30 07:23 | Outpatient (REF) | payer OTHER, SELFPAY ==
--- NOTE | ~2024-12-30 | CT_ITS ---
CLINICAL HISTORY: R05.3 - Chronic cough CT chest without contrast Comparison: CR - XR CHEST 2V - 11/12/24 10:19 EST Findings: Lungs are clear. No pleural effusion, pneumothorax, or infiltrate. No pulmonary nodules. Overall heart size is within normal limits. No enlarged lymph nodes. Thoracic aorta is nonaneurysmal. No free fluid or free air within the upper abdomen. No focal bony lesions. Incidental note is made of bilateral nipple piercings. IMPRESSION: 1. Unremarkable chest CT. This document has been electronically signed by: Mahesh Gomez MD on 12/30/2024 10:21:50
== END 2024-12-30 07:24 | disposition home or self-care (01) ==
LOC: HO.CT 07:23
PROVIDERS: PCP Physician Assistant Medical; Visit Provider Nurse Practitioner Family
DX: R05.3 Chronic cough (principal); Z77.29 Contact with and (suspected) exposure to other hazardous substances; Z87.891 Personal history of nicotine dependence
CPT/HCPCS: 71250

== ENCOUNTER → 2024-12-30 07:25 | Outpatient (BNV) | payer OTHER, SELFPAY | PROVIDERS: PCP Physician Assistant Medical; Visit Provider Radiology Diagnostic Radiology | DX: R05.3 Chronic cough (principal) | CPT/HCPCS: 71250 ==

== ENCOUNTER 2025-01-18 06:54 | Outpatient (RCR) | payer OTHER, SELFPAY ==
--- NOTE | 2024-12-23 08:58 | MHC.OT.EP ---
[address] [phone] Occupational Therapy Plan of Care Patient Name: Daryn Barrera Date of Evaluation: 12/23/24 Diagnosis: B Hand numbness Pain Location: 4-6.5 Right hand is worse Pain Score: 4 Pain Scale Used: Numeric (0 - 10) Aggravating Factors: Could not Quantify Alleviating Factors: 400 mg of ibuprofen every 6 hrs Assessment: Pt is a 39 yr. old R hand dominant male who reports B intermittent numbness and tingling over the past few yrs. He reports in the last 6 mos it has gotten worse, but it is still not constant and he cannot quantify a time of day or activity which exacerbates his sx's. Pt reports constant use of his hands while at work and he enjoys computer games, and hiking w/ walking poles in his downtime. He saw the MD who sent him for a nerve conduction study but the study was negative for nerve entrapment. He has a (+) tinels at B wrists as well as a (+) Phalen's test, and mild thenar wasting. 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 Thank you once again for your referral.
--- NOTE | 2025-01-22 07:59 | MHC.OT.DC ---
[address] [phone] F: [phone] Occupational Therapy Discharge Note Patient Name: Daryn Barrera Provider: Dr Bernie Herrera Diagnosis: B Hand numbness Date of Evaluation: 12/23/24 Date of Discharge: 01/22/25 Treatments to Date: 8 Discharge Status: Achieved Goals Independent with HEP Discharge Summary: Daryn was referred to OT w/ B/L hand numbness. He has progressed through course of OT with STG met and good progress through LTG. He has good follow through w/ HEP and recommendations for postural awareness and activity modification, but will continue to need self awareness w/ work and leisure tasks (long time spent with video games) to minimize symptoms. Electronically Signed By: ADDIE Diaz/L CHT Reviewed/agree with student documentation: Therapist: Please Sign and return to therapist, thank you for your referral.
== END 2025-01-22 08:00 | disposition home or self-care (01) ==
LOC: HO.OT 06:54
PROVIDERS: PCP Physician Assistant Medical; Visit Provider Orthopaedic Surgery
DX: R20.0 Anesthesia of skin (principal); M79.641 Pain in right hand; M79.642 Pain in left hand
CPT/HCPCS: 97035; 97110; 97140; 97166; 97535

== ENCOUNTER 2025-02-01 09:37 | Outpatient (AMB) | payer OTHER, SELFPAY ==
[2025-02-01 09:48] VITALS: BP 126/64; PULSE 84; O2SAT 98; BMI 33.8
--- NOTE | 2025-02-01 09:48 | A.OFFVIS_ITS ---
Vital Signs 02/01/25 09:48 Height 5 ft 11 in Weight 242 lb 8.136 oz BMI 33.8 BP 126/64 Blood Pressure Location Rt brachial Position Sitting Pulse 84 Pulse Source Pulse Oximeter Pulse Oximetry (%) 98 Oxygen Delivery Method Room Air Intake Visit Reasons: Abnormal PFT Gravity Prospector Required: No Manager Of Loss Prevention Operations: Manager Of Loss Prevention Operations offered & declined Accompanied by: Self / Same As Patient Allergies No Known Allergies Allergy (Verified 02/01/25 09:52) Medication List - Last Reconciled 02/01/25 by Edna Etienne LPN cetirizine (All Day Allergy (cetirizine)) 10 mg PO DAILY PRN fluticasone furoate-vilanterol 100-25 mcg/dose (Breo Ellipta) 1 inh inhalation DAILY ibuprofen 200 mg PO Q6H PRN multivitamin 1 tab PO DAILY HPI HPI Abnormal PFT: Details: Daryn is a pleasant 39 year old male, former smoker, quit 8 years ago with 20+ pyh, with underlying asthma. Patient reported vaping nicotine x 5 years, quit 2 years ago, now smoking marijuana daily, occasionally vaping THC. At the last visit he was started on Breo with resolution of inability to fully inspire however continues to dry cough. Denies any dyspnea, wheezing, or chest tightness. He endorses seasonal allergies, which contribute to sinus symptoms and occasional post nasal drip. He has been using Zyrtec daily with moderate effect. 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 Today he presents to review RAST and Chest CT. He denies any visits to urgent care or hospitalizations related to respiratory distress since the last visit. 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 Current occupational exposures/hazards: Yes (pesticides, concentrates, poison) Cognitive needs: No Hearing needs: Yes (possible high frequency hearing loss) Vision needs: Yes (glasses) Review of Systems Const Denies chills, Denies excessive sweating, Denies fever(s), Denies headache(s) and Denies night sweats Eyes Denies dry eyes and Reports itchy eyes ENT Reports Normal hearing present, Denies headache(s), Reports nasal congestion, Reports nasal discharge, Reports post nasal drip and Denies sore throat Card Denies chest pain, Denies chest pain at rest, Denies chest pain with activity, Denies claudication, Denies leg edema, Denies dyspnea, Denies dyspnea on exertion, Denies orthopnea and Denies paroxysmal nocturnal dyspnea Resp Denies change in phlegm color, Denies chest congestion, Reports cough, Denies hemoptysis, Denies excessive phlegm production, Denies pain on inspiration, Denies pain with cough, Denies dyspnea, Denies dyspnea on exertion, Denies stridor and Denies wheezing Musc Denies myalgias Neuro Reports Normal hearing present and Denies headache(s) Endo Denies excessive sweating Suhail/Lymph Denies lymphadenopathy Aller/Immun Reports itchy eyes and Denies wheezing Physical Exam Vital Signs: Last Vital Signs Pulse 84 02/01/25 09:48 BP 126/64 02/01/25 09:48 Pulse Ox 98 02/01/25 09:48 Oxygen Delivery Method Room Air 02/01/25 09:48 BMI result Body Mass Index 33.8 Const General: cooperative, healthy appearing, comfortable, no acute distress, well developed and alert Nutritional Appearance: obese Orientation/consciousness: patient oriented x3 Limitations: no limitations HEENT Head: Yes normal to inspection, Yes normocephalic and Yes atraumatic Ears: hearing grossly normal bilaterally and external ears normal Eyes General: appearance normal, both eyes and all related structures Eyelids: Yes eyelids normal Sclerae: sclerae normal EOM: EOMs intact bilaterally Neck Neck: Yes normal visual inspection and Yes no lymphadenopathy Lymphatic: no lymphadenopathy noted Chest Chest palpation & inspection: normal inspection of the chest Resp Effort & Inspection: normal respiratory effort, able to speak in complete sentences, no audible wheezes, no cough, no stridor, not tachypneic, no tripod positioning and no use of accessory muscles Auscultation: diminished lung sounds Cardio Jugular venous distension: no JVD Rate: regular rate Rhythm: regular rhythm Skin Other: warm, dry General skin exam: no rashes or lesions noted Neuro General: patient oriented x3 Cranial nerves: Yes Normal hearing present Cognition (Neuro): normal cognition Gait exam (Neuro): Normal gait present Extrem General: Yes normal to inspection, Yes capillary refill normal, Yes no clubbing, cyanosis or edema and Yes no pedal edema Psych Appearance: grossly normal and well kempt Speech and movement: Normal speech and movement present and Clear speech present Affect: normal affect Attitude: cooperative Thought process: Normal thought process present Thought content: Normal thought content present Insight: Good insight present (Psych) Judgement: Good judgement present (Psych) Results Reviewed Results Reviewed: [address] [address] [address] Scan Report Signed Patient: Daryn Barrera MR#: [id number] : 1985 Acct:[id number] Age/Sex: 39 / M ADM Date: 12/30/24 Loc: HO.CT Attending Dr: Daniela Vargas NP Ordering Physician: Daniela Vargas NP Date of Service: 12/30/24 Procedure(s): CT chest wo IV con Accession Number(s): [id number] cc: Maisha Cloud; Daniela Vargas NP~ Report Number: [id number]: Total DLP = 209.00 mGy-cm CLINICAL HISTORY: R05.3 - Chronic cough CT chest without contrast Comparison: CR - XR CHEST 2V - 11/12/24 10:19 EST Findings: Lungs are clear. No pleural effusion, pneumothorax, or infiltrate. No pulmonary nodules. Overall heart size is within normal limits. No enlarged lymph nodes. Thoracic aorta is nonaneurysmal. No free fluid or free air within the upper abdomen. No focal bony lesions. Incidental note is made of bilateral nipple piercings. IMPRESSION: 1. Unremarkable chest CT. This document has been electronically signed by: Mahesh Gomez MD on 12/30/2024 10:21:50 Dictated By: Mahesh Gomez MD Signed By: <Electronically signed by Mahesh Gomez MD in OV> 12/30/24 1022 DD/ 1021 TD/TT: 12/30/24 1021 Director Oncology: Assessment & Plan Assessment & Plan (1) Asthma: Code(s): J45.909 - Unspecified asthma, uncomplicated Category: Medical (2) Personal history of tobacco use: Code(s): Z87.891 - Personal history of nicotine dependence Category: Social Hx (3) Environmental allergies: Code(s): Z91.09 - Other allergy status, other than to drugs and biological substances Category: Medical (4) Exposure to silica: Code(s): Z77.29 - Contact with and (suspected) exposure to other hazardous substances Category: Medical (5) Chronic cough: Code(s): R05.3 - Chronic cough Category: Medical Plan Reviewed chest CT which was unremarkable. RAST + for multiple environmental allergens. Discussed ways to minimize allergen exposures. He reports moderate effect with Breo however continues with dry cough, will increase to 200 mcg. Encouraged use of nasal sprays/sinus rinses to aid in sinus symptoms which may be contributing to cough. All questions were answered and patient is in agreement of plan. Will follow up in 3 months or sooner if needed. Medications: New fluticasone furoate-vilanterol 200-25 mcg/dose (Breo Ellipta) 1 inh inhalation DAILY 60 ea 3RF Discontinued fluticasone furoate-vilanterol 100-25 mcg/dose (Breo Ellipta) Discontinued Reason: Patient Completed Course 1 inh inhalation DAILY 60 ea 3RF Coding Level of Care Code Est Pt Level 4 (94402) Diagnoses Asthma J45.909 Personal history of tobacco use Z87.891 Environmental allergies Z91.09 Exposure to silica Z77.29 Chronic cough R05.3
== END 2025-02-01 10:14 | disposition home or self-care (01) ==
PROVIDERS: PCP Physician Assistant Medical; Visit Provider Nurse Practitioner Family
DX: J45.909 Unspecified asthma, uncomplicated (principal); Z87.891 Personal history of nicotine dependence; Z91.09 Other allergy status, other than to drugs and biological substances; Z77.29 Contact with and (suspected) exposure to other hazardous substances; R05.3 Chronic cough
CPT/HCPCS: 99214

== ENCOUNTER 2025-04-19 09:49 | Outpatient (AMB) | payer OTHER, SELFPAY ==
[2025-04-19 09:51] VITALS: BP 102/70; PULSE 77; O2SAT 97; BMI 33.4
--- NOTE | 2025-04-19 09:51 | A.OFFVIS_ITS ---
Vital Signs 04/19/25 09:51 Height 5 ft 11 in Weight 239 lb 3.225 oz BMI 33.4 BP 102/70 Blood Pressure Location Rt brachial Position Sitting Pulse 77 Pulse Source Pulse Oximeter Pulse Oximetry (%) 97 Oxygen Delivery Method Room Air Intake Visit Reasons: Abnormal PFT Allergies No Known Allergies Allergy (Verified 04/19/25 09:54) HPI HPI Abnormal PFT: Details: Daryn is a pleasant 39 year old male, former 20 pack year smoker, quit 8 years ago with underlying asthma. Patient also reported h/o vaping nicotine x 5 years, quit 2 years ago, now smoking marijuana daily, occasionally vaping THC. At the last visit he was started on Breo with overall improvements in symptoms however occasionally feels the inability to fully inspire. He denies any known triggers although endorses seasonal allergies, taking antihistamines with moderate effect. Denies any cough, dyspnea, wheezing, or chest tightness. He denies any visits to urgent care or hospitalizations related to respiratory distress since the last visit. 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 Current occupational exposures/hazards: Yes (pesticides, concentrates, poison) Cognitive needs: No Hearing needs: Yes (possible high frequency hearing loss) Vision needs: Yes (glasses) Review of Systems Const Denies chills, Denies excessive sweating, Denies fever(s), Denies headache(s) and Denies night sweats Eyes Denies dry eyes and Reports itchy eyes ENT Reports Normal hearing present, Denies headache(s), Reports nasal congestion, Reports nasal discharge, Reports post nasal drip and Denies sore throat Card Denies chest pain, Denies chest pain at rest, Denies chest pain with activity, Denies claudication, Denies leg edema, Denies dyspnea, Denies dyspnea on exertion, Denies orthopnea and Denies paroxysmal nocturnal dyspnea Resp Denies change in phlegm color, Denies chest congestion, Denies hemoptysis, Denies excessive phlegm production, Denies pain on inspiration, Denies pain with cough, Denies dyspnea, Denies dyspnea on exertion, Denies stridor and Denies wheezing Musc Denies myalgias Neuro Reports Normal hearing present and Denies headache(s) Endo Denies excessive sweating Suhail/Lymph Denies lymphadenopathy Aller/Immun Reports itchy eyes and Denies wheezing Physical Exam Vital Signs: Last Vital Signs Pulse 77 04/19/25 09:51 BP 102/70 04/19/25 09:51 Pulse Ox 97 04/19/25 09:51 Oxygen Delivery Method Room Air 04/19/25 09:51 BMI result Body Mass Index 33.4 Const General: cooperative, healthy appearing, comfortable, no acute distress, well developed and alert Nutritional Appearance: obese Orientation/consciousness: patient oriented x3 Limitations: no limitations HEENT Head: Yes normal to inspection, Yes normocephalic and Yes atraumatic Ears: hearing grossly normal bilaterally and external ears normal Eyes General: appearance normal, both eyes and all related structures Eyelids: Yes eyelids normal Sclerae: sclerae normal EOM: EOMs intact bilaterally Neck Neck: Yes normal visual inspection and Yes no lymphadenopathy Lymphatic: no lymphadenopathy noted Chest Chest palpation & inspection: normal inspection of the chest Resp Effort & Inspection: normal respiratory effort, able to speak in complete sentences, no audible wheezes, no cough, no stridor, not tachypneic, no tripod positioning and no use of accessory muscles Auscultation: diminished lung sounds Cardio Jugular venous distension: no JVD Rate: regular rate Rhythm: regular rhythm Skin Other: warm, dry General skin exam: no rashes or lesions noted Neuro General: patient oriented x3 Cranial nerves: Yes Normal hearing present Cognition (Neuro): normal cognition Gait exam (Neuro): Normal gait present Extrem General: Yes normal to inspection, Yes capillary refill normal, Yes no clubbing, cyanosis or edema and Yes no pedal edema Psych Appearance: grossly normal and well kempt Speech and movement: Normal speech and movement present and Clear speech present Affect: normal affect Attitude: cooperative Thought process: Normal thought process present Thought content: Normal thought content present Insight: Good insight present (Psych) Judgement: Good judgement present (Psych) Assessment & Plan Assessment & Plan (1) Asthma: Code(s): J45.909 - Unspecified asthma, uncomplicated Category: Medical (2) Personal history of tobacco use: Code(s): Z87.891 - Personal history of nicotine dependence Category: Social Hx (3) Environmental allergies: Code(s): Z91.09 - Other allergy status, other than to drugs and biological substances Category: Medical (4) Exposure to silica: Code(s): Z77.29 - Contact with and (suspected) exposure to other hazardous substances Category: Medical (5) Chronic cough: Code(s): R05.3 - Chronic cough Category: Medical Plan Daryn continues to report occasional sensation of inability to fully inspire, will send albuterol MDI for PRN use in addition to Breo. He is aware to call if symptoms do not improve. Encouraged use of nasal sprays/sinus rinses to aid in sinus symptoms. Consider allergy referral in the future. All questions were answered and patient is in agreement of plan. Will follow up in 3-6 months or sooner if needed. Medications: New albuterol sulfate 90 mcg/actuation 2 puffs inhalation Q4-6H PRN 1 ea 0RF shortness of breath or wheezing Coding Level of Care Code Est Pt Level 4 (27467) Diagnoses Asthma J45.909 Personal history of tobacco use Z87.891 Environmental allergies Z91.09 Exposure to silica Z77.29 Chronic cough R05.3
== END 2025-04-19 10:22 | disposition home or self-care (01) ==
LOC: HO.HPS 09:50
PROVIDERS: PCP Physician Assistant Medical; Visit Provider Nurse Practitioner Family
DX: J45.909 Unspecified asthma, uncomplicated (principal); Z87.891 Personal history of nicotine dependence; Z91.09 Other allergy status, other than to drugs and biological substances; Z77.29 Contact with and (suspected) exposure to other hazardous substances; R05.3 Chronic cough
CPT/HCPCS: 99214

== ENCOUNTER → 2025-04-19 09:49 | Outpatient (BNVA) | payer OTHER, SELFPAY | PROVIDERS: PCP Physician Assistant Medical; Visit Provider Nurse Practitioner Family | DX: Z91.09 Other allergy status, other than to drugs and biological substances (principal) ==

== ENCOUNTER 2025-08-26 10:23 | Outpatient (AMB) | payer OTHER, SELFPAY ==
--- NOTE | 2025-08-26 10:25 | A.OFFPC_ITS ---
Vital Signs 08/26/25 10:33 Height 5 ft 11 in Weight 230 lb BMI 32.1 BP 108/68 Blood Pressure Location Lt brachial Position Sitting Respiration 16 Pulse 80 Pulse Source Pulse Oximeter Temp 97.9 F Temp Source Temporal Artery Scan Pulse Oximetry (%) 96 Oxygen Delivery Method Room Air Intake Visit Reasons: cpe Intake Note: Daryn presents in the office today for his annual physical. Allergies Seasonal Allergies Allergy (Verified 08/26/25 10:28) Runny Nose Tobacco use date assessed: 08/26/25 Dental Screening Dental Screen Date: 08/26/25 Did you have a dental visit in the last 12 months?: Yes Did you have a dental problem in the last 6 months where you did not have access to dental care?: No Was dental information given to patient?: Patient has dentist HPI HPI Comments History of Present Illness Details This is a 39-year-old male who presents for his physical exam. Referred to urology because he wants to discuss vasectomy. Referred to podiatry for evaluation of chronic plantar foot pains which are worse when he first stands up or gets out of bed in the morning. Reviewed conservative management of plantar fasciitis. Patient woke up with 8/10, pounding MORGAN 1.5 weeks ago. [place] nauseous, took Ibuprofen and went back to bed. Initially woke up again with worse headache, but then it did improve. [place] hung over the rest of the day. Mouth was dry. He questions dehydration, but he had another headache a few days ago that was similar though not as intense. Never gets headaches. No new meds. Admists to stressors. No head trauma. He is getting flu vaccine and a COVID-19 vaccine in September. Defers tdap-he will get it at his pharmacy. ROS: Constitutional: No unexplained weight loss, fever, chills or night sweats. Eyes: No vision changes, blurry vision, double vision, eye pain, eye redness, eye discharge. ENT: No hearing loss, sneezing, congestion, runny nose or sore throat. Respiratory: No shortness of breath, cough or sputum production. Cardiovascular: No chest pain, chest pressure or chest discomfort. No palpitations or pedal edema. Gastrointestinal: No anorexia, nausea, vomiting or diarrhea. No abdominal pain or blood in stool. Genitourinary: No dysuria, hematuria, urinary frequency. Neurologic: +Dizzy with headache. Denies syncope, seizures, tremor, memory impairment, numbness, tingling, weakness, slurred speech Musculoskeletal: Denies neck pain, joint swelling, see HPI Hematologic/Lymphatics: No bleeding or bruising. No painful lymph nodes. Skin: No rash or itching. Endocrine: No cold or heat intolerance. No polyuria or polydipsia. Psychiatric: Patient endorses history of chronic depression and anxiety, but he says he has good coping strategies. He has been in therapy. Physical exam: Constitutional: Alert, in no distress. Head: Normocephalic. Eyes: Pupils are equal, round and reactive to light. Extraocular muscles intact. Ear, Nose and Throat: Excessive cerumen in canals. Normal nasal mucosa. No nasal discharge. No oral lesions. Neck: Supple, Full range of motion. No lymphadenopathy. No palpable thyroid masses. Respiratory: Clear to auscultation. Cardiovascular: S1 S2 regular. No murmurs. Gastrointestinal: Abdomen soft, non-tender, non-distended. Normal bowel sounds. No palpable masses. Genitourinary: Patient deferred. Neurologic:?Alert and oriented x 3, no focal deficits observed, CN 2-12 intact, [id number] normal, sensation equal and symmetric, strength UE and LE 5/5 bilaterally, reflexes equal and symmetric.? Normal gait.? Patient able to heel walk, toe walk and walk heel-to-toe across the floor.? No pronator drift.? Negative Romberg. Skin: No rashes or lesions Musculoskeletal: No gross deformities. Extremities: Warm and well perfused. No clubbing, cyanosis or edema. intact peripheral pulses bilaterally. feet nontender with no obbious deformities Psychiatric: Normal mood and affect COUNTS INCLUDE 234 BEDS AT THE [facility] Medical History (Updated 08/27/25 @ 17:09 by MOSES Rodriguez) New onset headache Bilateral foot pain Pes planus of both feet Headache Routine physical examination Abnormal PFT Breathing problem Bilateral hand pain Bilateral carpal tunnel syndrome Family History (Updated 08/26/25 @ 10:31 by Carolyn Gar CMA) Paternal Grandmother Heart attack CVA (cerebral vascular accident) Mother FH: mental illness Substance abuse Sister FH: mental illness Substance abuse Paternal Grandfather Alcoholism Social History (Updated 08/26/25 @ 10:31 by Carolyn Gar CMA) Housing: House Housing Other:: , son, dog Alcohol intake: current Patient Tobacco Use Status: Former Tobacco user Cigarette Packs Per Day: 3 Years Smoked: 10 e-Cigarette/Vaping Use: Former Use (quit 2 years ago) Second Hand Smoke Exposure: No Substance Use Type: Marijuana service: No Current occupational status: employed 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 1. Little interest or pleasure in doing things: several days 2. Feeling down, depressed, or hopeless: more than half the days 3. Trouble falling or staying asleep, or sleeping too much: several days 4. Feeling tired or having little energy: several days 5. Poor appetite or overeating: several days 6. Feeling bad about yourself - or that you are a failure or have let yourself or your family down: several days 7. Trouble concentrating on things, such as reading the newspaper or watching television: not at all 8. Moving or speaking so slowly that other people could have noticed. Or the opposite - being so fidgety or restless that you have been moving around a lot more than usual: not at all 9. Thoughts that you would be better off or of hurting yourself in some way: not at all Total score: 7 Depression Screening Interpretation: Positive Depression Screening Follow-up: Existing condition Depression Screening Done: Yes 11133 - PHQ-9 Billing: Yes Source: Developed by Drs. El Llanes, Niru Henson, Ehsan Pacheco and colleagues, with an educational barbara from [employer] Thrive Questionnaire Date Thrive assessed: 08/26/25 I am a: Patient What is your living situation today?: I have a steady place to live Within the past 12 months, did the food you bought not last and you didn't have the money to get more?: Never true Within the past 12 months, did you worry whether your food would run out before you got money to buy more?: Never true Do you have trouble paying for medicines?: No Do you have trouble getting transportation to medical appointments?: No Do you have trouble paying your heating and electricity bill?: No Do you have trouble taking care of your child, family member or friend?: No Do you have trouble with day-to-day activities such as bathing, preparing meals, shopping, managing finances, etc.?: No Are you currently unemployed and looking for a job?: No Are you interested in more education?: No Please select the resources that you would like help with: None Currently or been in a relationship where the following occur: No concerns reported THRIVE Score: 0 AUDIT C Alcohol Use Questionnaire (AUDIT-C) 1. How often do you have a drink containing alcohol?: Monthly or less 2. How many drinks containing alcohol do you have on a typical day when you are drinking?: 1 or 2 3. How often do you have six or more drinks on one occasion?: Never Total Score: 1 VLAD-7 AMB Questionnaire VLAD-7 Date VLAD - 7 assessed: 08/26/25 Feeling nervous, anxious, or on edge: 3 = Nearly every day Not being able to stop or control worryin = Nearly every day Worrying too much about different things: 3 = Nearly every day Trouble relaxin = Several days Being so restless that it is hard to sit still: 0 = Not at all Becoming easily annoyed or irritable: 1 = Several days Feeling afraid as if something awful might happen: 0 = Not at all Total VLAD-7 score (0-4 normal; 5-9 mild; 10-14 moderate; 15-21 severe): 11 Source: Developed by Drs. El Llanes, Niru Henson, Ehsan Pacheco and colleagues, with an educational barbara from [employer] VLAD-7 Assessment Billing VLAD-7 Assessment Tool: VLAD-7 Assessment 85648 Physical exam (Primary Care) Vital Signs: Last Vital Signs Temp 97.9 F 08/26/25 10:33 Pulse 80 08/26/25 10:33 Resp 16 08/26/25 10:33 BP 108/68 08/26/25 10:33 Pulse Ox 96 08/26/25 10:33 Oxygen Delivery Method Room Air 08/26/25 10:33 BMI result Body Mass Index 32.1 Tobacco/Smoking Status: Tobacco use Status Tobacco use date assessed 08/26/25 08/26/25 10:35 Patient Tobacco Use Status Former Tobacco user 08/26/25 10:35 e-Cigarette/Vaping Use Former Use (quit 2 years ago 08/26/25 10:35 ) PHQ-9: PHQ-9 Score PHQ-9: Total score 7 08/27/25 17:09 Depression Screening Interpretation: Positive Depression Screening Follow-up: Existing condition Thrive Assessment: Date of Thrive Assessment Date Thrive assessed 08/26/25 08/26/25 10:35 Currently or been in a relationship where the following occur: No concerns reported Coding Level of Care Code Est Pt Level 3 (56027) Est Pt Prev Care 40-64y(48572) Diagnoses Routine physical examination Z00.00 Pes planus of both feet M21.41; M21.42 Bilateral foot pain M79.671; M79.672 New onset headache R51.9 Additional Codes VLAD-7 Assessment Billing - VLAD-7 Assessment Tool: VLAD-7 Assessment 51733 ([id number]) PHQ-9 - 02912 - PHQ-9 Billing: Yes ([id number]) Assessment & Plan Assessment & Plan (1) Routine physical examination: Code(s): Z00.00 - Encounter for general adult medical examination without abnormal findings Category: Medical (2) Pes planus of both feet: Code(s): M21.41 - Flat foot [pes planus] (acquired), right foot; M21.42 - Flat foot [pes planus] (acquired), left foot Category: Medical (3) Bilateral foot pain: Code(s): M79.671 - Pain in right foot; M79.672 - Pain in left foot Category: Medical (4) New onset headache: Code(s): R51.9 - Headache, unspecified Category: Medical Plan Patient is seen today for a routine physical. As part of this visit we reviewed the following issues, which are considered and essential part of preventative health in this age group: - Screening for colon cancer - Discussed Prostate cancer screening - Blood pressure screening - Cholesterol screening - Nutritional and exercise counseling - Counseling of injury prevention including fire prevention, smoke alarms and seat belt usage - Screening for depression - Education about skin cancer - Recommendations about immunizations - Recommendation of an eye exam - Screening for substance abuse New onset headaches Go to ER for severe headache thuderclap headache or neuro deficits Patient declines MRI (claustrophobic and does not was premedication). Head CT ordered to rule out mass. Check labs. Orders: Orders Lyme IgG/IgM w/reflex to WB Today R51.9 - Headache, unspecified, Z00.00 - Encounter for general adult medical examination without abnormal findings Complete Blood Count no Diff Today R51.9 - Headache, unspecified, Z00.00 - Encounter for general adult medical examination without abnormal findings TSH reflex Free T4 Today R51.9 - Headache, unspecified, Z00.00 - Encounter for general adult medical examination without abnormal findings Prostate Specific Antigen Today Z12.5 - Encounter for screening for malignant neoplasm of prostate Lipid Panel Today R51.9 - Headache, unspecified, Z00.00 - Encounter for general adult medical examination without abnormal findings Comprehensive Met. Panel Today R51.9 - Headache, unspecified, Z00.00 - Encounter for general adult medical examination without abnormal findings CT head/brain wo/w IV con 08/27/25 R51.9 - Headache, unspecified Referrals Podiatry Referral M21.41 - Flat foot [pes planus] (acquired), right foot, M21.42 - Flat foot [pes planus] (acquired), left foot, M79.671 - Pain in right foot, M79.672 - Pain in left foot Urology Referral Z30.09 - Encounter for other general counseling and advice on contraception
[2025-08-26 10:33] VITALS: BP 108/68; PULSE 80; RESP 16; TEMP 36.6; O2SAT 96; BMI 32.1
== END 2025-08-26 11:23 | disposition home or self-care (01) ==
LOC: HO.HMCFM 10:24
PROVIDERS: PCP Physician Assistant Medical; Visit Provider Physician Assistant Medical
DX: Z00.00 Encounter for general adult medical examination without abnormal findings (principal); M21.41 Flat foot [pes planus] (acquired), right foot; M21.42 Flat foot [pes planus] (acquired), left foot; M79.671 Pain in right foot; M79.672 Pain in left foot; R51.9 Headache, unspecified

== ENCOUNTER → 2025-08-26 10:23 | Outpatient (BNVA) | payer OTHER, SELFPAY | PROVIDERS: PCP Physician Assistant Medical; Visit Provider Physician Assistant Medical | DX: Z00.00 Encounter for general adult medical examination without abnormal findings (principal); M21.41 Flat foot [pes planus] (acquired), right foot; M21.42 Flat foot [pes planus] (acquired), left foot; M79.671 Pain in right foot; M79.672 Pain in left foot; R51.9 Headache, unspecified; Z13.31 Encounter for screening for depression; Z13.39 Encounter for screening examination for other mental health and behavioral disorders | CPT/HCPCS: 96127 ==

== ENCOUNTER 2025-08-28 07:23 | Outpatient (REF) | payer OTHER, SELFPAY ==
[2025-08-28 08:13] LABS: Hematocrit 46.2 % (42.0-52.0); Hemoglobin 15.2 g/dl (14.0-18.0); Mean Corpuscular HGB Conc 32.9 g/dl (31.0-36.0); Mean Corpuscular Hemoglobin 30.0 pg (27.0-33.0); Mean Corpuscular Volume 91.3 fL (80.0-98.0); NRBC Abs Auto 0.000 X10*3/uL (0.0-0.012); NRBC Pct Auto 0.0 /100WBC (0.0-0.2); Platelet Count 210 X10*3/uL (160-400); Red Blood Count 5.06 X10*6/uL (4.60-5.80); White Blood Count 6.0 X10*3/uL (4.8-10.8)
[2025-08-28 08:59] LABS: Alanine Aminotransferase 17 U/L (0-40); Albumin Level 4.5 g/dL (3.5-5.0); Alkaline Phosphatase 91 U/L (39-117); Anion Gap 12 (12-20); Aspartate Amino Transferase 27 U/L (5-37); Blood Urea Nitrogen 14 mg/dL (9-16); Calcium 9.2 mg/dL (8.4-10.2); Carbon Dioxide 28 mmol/L (22-29); Chloride 106 mmol/L (96-108); Cholesterol 179 mg/dL (<200); Estimated Glomerular Filt Rate > 60; HDL Cholesterol 51 mg/dL (>40); Potassium 4.1 mmol/L (3.3-5.1); Sodium 142 mmol/L (135-145); Total Protein 7.1 g/dL (6.5-8.0); Triglycerides 49 mg/dL (<150)
[2025-08-28 09:15] LABS: Prostate Specific Antigen 0.84 ng/mL (<0.05-4.0)
[2025-08-30 17:23] LABS: Lyme Abs Screen <0.90 index
== END 2025-08-28 07:24 | disposition home or self-care (01) ==
LOC: HO.LAB 07:23
PROVIDERS: PCP Physician Assistant Medical; Visit Provider Physician Assistant Medical
DX: Z01.84 Encounter for antibody response examination (principal); Z12.5 Encounter for screening for malignant neoplasm of prostate; Z13.6 Encounter for screening for cardiovascular disorders; Z13.29 Encounter for screening for other suspected endocrine disorder; R51.9 Headache, unspecified
CPT/HCPCS: 36415; 80053; 80061; 84153; 84443; 85027; 86617; 86618

== ENCOUNTER 2025-10-18 09:10 | Outpatient (AMB) | payer OTHER, SELFPAY ==
--- NOTE | 2025-10-18 09:13 | MHC.OFFVIS ---
Vital Signs 10/18/25 09:14 Height 5 ft 11 in Weight 223 lb 12.307 oz BMI 31.2 BP 106/58 L Blood Pressure Location Rt brachial Position Sitting Pulse 74 Pulse Source Pulse Oximeter Pulse Oximetry (%) 99 Oxygen Delivery Method Room Air Intake Visit Reasons: Asthma Allergies Seasonal Allergies Allergy (Verified 10/18/25 09:16) Runny Nose HPI Comments Details: Daryn is a pleasant 40 year old male, former 20 pack year smoker, quit 8 years ago with underlying asthma. Patient also reported h/o vaping nicotine x 5 years, quit 2 years ago, now smoking marijuana daily. He reports his breathing has not changed and that he has had a difficult last six weeks secondary to stress, which he believes is a major contributor to his symptoms. He has been using a Breo inhaler daily, which provided some initial benefit, but he feels his symptoms of dyspnea are now more frequent than before starting treatment. He reports that his albuterol inhaler provides no effect and he has used it sparingly, approximately 12-15 times, mostly while at work. The patient's primary symptom is a sensation of being unable to catch his breath, which occurs randomly, multiple times per day, and is not associated with activity. He has noticed an increase in these episodes when he is more stressed or not sleeping well. He denies associated wheezing, or chest tightness. He has a cough but is unsure if it is related to his work environment, where he is exposed to chemical vapors, seasonal allergies or his marijuana use. The patient reports significant life stress, including recent financial strain, and has an appointment scheduled with a therapist. He smokes marijuana multiple times per day but has quit vaping nicotine, after which his recurrent yearly sinus infections resolved. He has experienced an unintentional weight loss of 10-12 pounds over the last 6-8 weeks, which he attributes to stress affecting his appetite. He has a history of severe migraine-like headaches associated with shaking, shivering, sweating, and nausea, for which a CT scan is planned from PCP. He has a strong family history of sleep apnea, but he denies personal symptoms of snoring or witnessed apneas. He typically sleeps 5-6 hours per night and reports waking twice to urinate, which he attributes to drinking large amounts of herbal tea before bed. [facility] Medical History (Updated 08/27/25 @ 17:09 by MOSES Rodriguez) New onset headache Bilateral foot pain Pes planus of both feet Headache Routine physical examination Abnormal PFT Breathing problem Bilateral hand pain Bilateral carpal tunnel syndrome Family History (Updated 08/26/25 @ 10:[address] 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 Current occupational exposures/hazards: Yes (pesticides, concentrates, poison) Cognitive needs: No Hearing needs: Yes (possible high frequency hearing loss) Vision needs: Yes (glasses) Review of Systems Const Denies chills, Denies excessive sweating, Denies fever(s), Denies headache(s) and Denies night sweats Eyes Denies dry eyes, Denies irritation and Denies itchy eyes ENT Reports Normal hearing present, Denies headache(s), Denies nasal congestion, Denies nasal discharge, Denies post nasal drip and Denies sore throat Card Denies chest pain, Denies chest pain at rest, Denies chest pain with activity, Denies claudication, Denies leg edema, Denies orthopnea and Denies paroxysmal nocturnal dyspnea Resp Denies chest congestion, Denies excessive phlegm production, Denies pain on inspiration, Denies pain with cough, Denies stridor and Denies wheezing Musc Denies myalgias Neuro Reports Normal hearing present and Denies headache(s) Endo Denies excessive sweating Suhail/Lymph Denies lymphadenopathy Aller/Immun Denies itchy eyes, Denies seasonal rhinorrhea and Denies wheezing Physical Exam Vital Signs: Last Vital Signs Pulse 74 10/18/25 09:14 BP 106/58 L 10/18/25 09:14 Pulse Ox 99 10/18/25 09:14 Oxygen Delivery Method Room Air 10/18/25 09:14 BMI result Body Mass Index 31.2 Const General: cooperative, healthy appearing, comfortable, no acute distress, well developed and alert Nutritional Appearance: obese Orientation/consciousness: patient oriented x3 Limitations: no limitations HEENT Head: Yes normal to inspection, Yes normocephalic and Yes atraumatic Ears: hearing grossly normal bilaterally and external ears normal Eyes General: appearance normal, both eyes and all related structures Eyelids: Yes eyelids normal Sclerae: sclerae normal EOM: EOMs intact bilaterally Neck Neck: Yes normal visual inspection and Yes no lymphadenopathy Lymphatic: no lymphadenopathy noted Chest Chest palpation & inspection: normal inspection of the chest Resp Effort & Inspection: normal respiratory effort, able to speak in complete sentences, no audible wheezes, no cough, no stridor, not tachypneic, no tripod positioning and no use of accessory muscles Auscultation: diminished lung sounds Cardio Jugular venous distension: no JVD Rate: regular rate Rhythm: regular rhythm Skin Other: warm, dry General skin exam: no rashes or lesions noted Neuro General: patient oriented x3 Cranial nerves: Yes Normal hearing present Cognition (Neuro): normal cognition Gait exam (Neuro): Normal gait present Extrem General: Yes normal to inspection, Yes capillary refill normal, Yes no clubbing, cyanosis or edema and Yes no pedal edema Psych Appearance: grossly normal and well kempt Speech and movement: Normal speech and movement present and Clear speech present Affect: normal affect Attitude: cooperative Thought process: Normal thought process present Thought content: Normal thought content present Insight: Good insight present (Psych) Judgement: Good judgement present (Psych) Assessment & Plan Assessment & Plan (1) Asthma: Code(s): J45.909 - Unspecified asthma, uncomplicated Category: Medical (2) Personal history of tobacco use: Code(s): Z87.891 - Personal history of nicotine dependence Category: Social Hx (3) Environmental allergies: Code(s): Z91.09 - Other allergy status, other than to drugs and biological substances Category: Medical (4) Exposure to silica: Code(s): Z77.29 - Contact with and (suspected) exposure to other hazardous substances Category: Medical (5) Chronic cough: Code(s): R05.3 - Chronic cough Category: Medical Plan Discussed with the patient that his prior PFT was suggestive of asthma, showing air trapping and a significant response to albuterol in the small to medium airways. We reviewed that his current regimen of Breo is providing suboptimal relief and that his rescue albuterol inhaler gives him no perceived benefit. Explained that his symptoms are likely multifactorial, with contributions from his asthma, significant stress, and potential occupational exposures. We discussed changing his controller medication from Breo to Symbicort, which contains a different steroid and is taken twice daily, to see if he has a better response. We also talked about the role of stress, and encouraged him to follow through with his scheduled therapy appointment. Addressed his concerns about sleep apnea, explaining that while he has a family history, his current lack of cardinal symptoms does not warrant a sleep study, but we can revisit this if symptoms evolve. Advised him to continue using his albuterol inhaler as needed, and to contact us if symptoms worsen, particularly with a respiratory infection, or if he develops wheezing that does not respond to albuterol. Informed him to contact our office if he has issues with insurance coverage for the new inhaler, as alternatives are available. A follow-up visit will be scheduled in three months. All questions were answered and patient is in agreement of plan. Patient was informed and verbally consented to the use of an ambient scribe for clinic note documentation during this visit. Medications: New budesonide-formoterol 160-4.5 mcg/actuation (Symbicort) 2 puffs inhalation Q12H 10.2 grams 3RF Discontinued fluticasone furoate-vilanterol 200-25 mcg/dose (Breo Ellipta) Discontinued Reason: Patient Completed Course 1 inh PO DAILY 180 ea 3RF Coding Level of Care Code Est Pt Level 4 (86092) Diagnoses Asthma J45.909 Personal history of tobacco use Z87.891 Environmental allergies Z91.09 Exposure to silica Z77.29 Chronic cough R05.3
[2025-10-18 09:14] VITALS: BP 106/58; PULSE 74; O2SAT 99; BMI 31.2
== END 2025-10-18 09:45 | disposition home or self-care (01) ==
PROVIDERS: PCP Physician Assistant Medical; Visit Provider Nurse Practitioner Family
DX: J45.909 Unspecified asthma, uncomplicated (principal); Z87.891 Personal history of nicotine dependence; Z91.09 Other allergy status, other than to drugs and biological substances; Z77.29 Contact with and (suspected) exposure to other hazardous substances; R05.3 Chronic cough
CPT/HCPCS: 99214

== ENCOUNTER 2025-10-18 13:21 | Outpatient (AMB) | payer OTHER, SELFPAY ==
[2025-10-18 13:37] VITALS: BMI 31.1
--- NOTE | 2025-10-18 13:37 | A.OFFVIS_ITS ---
Vital Signs 10/18/25 13:37 Height 5 ft 11 in Weight 223 lb BMI 31.1 Intake Visit Reasons: elyse foot pain, elyse flat feet Intake Note: Daryn is a 40 year old male who presents today as a new patient for an evaluation of his bilateral foot pain. Patient reports this has been going on for about 2 years. Pain is located on the medial aspect and arch of the foot. He has tried Naproxen and Ibuprofen and has found slight relief for the pain. No previous imaging in patients chart Allergies Seasonal Allergies Allergy (Verified 10/18/25 13:38) Runny Nose HPI HPI elyse foot pain, elyse flat feet: Details: Chief Complaint: The patient presents with bilateral foot pain that has been ongoing for a couple of years. HPI: The patient is a 40 year old male presenting with bilateral foot pain. He reports the pain began insidiously a couple of years ago and has gradually worsened. The pain is primarily located in the arches of both feet, and sometimes feels deeper, but never affects his heels or his toes. He experiences initial pain at the ball of his foot upon getting out of bed in the morning, which subsides, but the arch pain persists throughout the day, although some days are pain-free. His symptoms are exacerbated by his labor-intensive job, which requires standing, and by hiking; he preemptively takes unspecified pain medication before hiking. The patient has a known history of flat feet since childhood. He reports no prior treatment for his foot pain. He also has a concurrent diagnosis of carpal tunnel syndrome which he has been treating with at home therapy. 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 - Hobbies and Activities: Enjoys hiking and has desk-related hobbies. - Weight Management: Acknowledges that excess weight could exacerbate symptoms and is focused on losing weight. Family History: - No significant family history of arthritis. [facility] Medical History (Updated 10/18/25 @ 15:18 by Jorge Giraldo DPM) New onset headache Bilateral foot pain Pes planus of both feet Headache Routine physical examination Abnormal PFT Breathing problem Bilateral hand pain Bilateral carpal tunnel syndrome Family History (Updated 08/26/25 @ 10:31 by Carolyn Gar CMA) Paternal Grandmother Heart attack CVA (cerebral vascular accident) Mother FH: mental illness Substance abuse Sister FH: mental illness Substance abuse Paternal Grandfather Alcoholism Social History Housing: House Housing Other:: , son, dog Alcohol intake: current Patient Tobacco Use Status: Former Tobacco user Cigarette Packs Per Day: 3 Years Smoked: 10 e-Cigarette/Vaping Use: Former Use (quit 2 years ago) Second Hand Smoke Exposure: No Substance Use Type: Marijuana service: No Current occupational status: employed 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 Neuro: Protective sensation grossly intact to bilateral lower extremities. MSK: Mild tenderness along the central and medial plantar fascial band along the mid arch to distal arch. Moderate to severe pes planus deformity with bilateral heel valgus & too many toe sign. No Tenderness on palpation along the distal insertion of the Achilles tendon. 0 Degrees of ankle dorsiflexion on knee extension, 3-4 degrees of ankle dorsiflexion on knee flexion. Severe hallux rigidus bilaterally, dorsal palpable bone spurs of the 1st Metatarsal-phalangeal joint right worse than left. Assessment & Plan Assessment & Plan (1) Pes planus of both feet: Code(s): M21.41 - Flat foot [pes planus] (acquired), right foot; M21.42 - Flat foot [pes planus] (acquired), left foot Category: Medical Plan: * The patient's symptoms are attributed to his longstanding pes planus foot type. * The plan is to improve foot mechanics and reduce symptoms with conservative measures. * Recommended [id number]-[id number]-[id number] orthotic inserts to provide arch support, specifically suggesting PowerStep Jackman low arch and [employer] Posted Orthotics. * Advised to gradually break in the inserts, starting with one hour a day and increasing duration over time, initially wearing them outside of work. * Recommended wearing supportive sneakers (e.g., Hoka, New Balance, Bowman) rather than flat shoes or going barefoot. Discussed the possibility of needing a larger size of work boot to accommodate inserts. * Ordered bilateral foot X-rays to evaluate the extent of arthritis and rule out other underlying pathology. * Plan to follow up in 1-2 months to assess response to interventions. (2) Plantar fasciitis, bilateral: Code(s): M72.2 - Plantar fascial fibromatosis Category: Medical Plan: * Discussed etiology of the patient's foot pain. Differential diagnosis includes plantar fasciitis, neuritis, tendinitis. * Patient educated on the nature and etiology of plantar fasciitis, which involves inflammation and microtearing of the plantar fascia due to repetitive stress and overuse. * The patient was counseled on conservative management of plantar fasciitis, including daily stretching exercises targeting the plantar fascia and Achilles tendon, use of supportive and properly fitting footwear, and consideration of custom or prefabricated orthotics to improve foot biomechanics. * Discussed that if symptoms persist despite these measures, further interventions such as corticosteroid injections may be considered. * Instructed the patient on home stretching and range of motion exercises including calf-stretches, frozen water bottle therapy, band-therapy. (3) Hallux rigidus of both feet: Code(s): M20.21 - Hallux rigidus, right foot; M20.22 - Hallux rigidus, left foot Category: Medical Plan: * The patient has advanced OA of the great toe joints with severely limited motion, which is likely a long-term consequence of his flat foot mechanics. * As this is not the primary source of his current pain, the plan is to monitor the condition. * Surgical intervention is a future possibility but is not recommended at this time. * Ordered b/l X-rays will be used to better assess the severity of the arthritis. Orders: Orders XR Foot Elyse 3V Today M21.41 - Flat foot [pes planus] (acquired), right foot, M21.42 - Flat foot [pes planus] (acquired), left foot, M79.671 - Pain in right foot, M79.672 - Pain in left foot XR Calcaneus Elyse min 2V Today M21.41 - Flat foot [pes planus] (acquired), right foot, M21.42 - Flat foot [pes planus] (acquired), left foot, M79.671 - Pain in right foot, M79.672 - Pain in left foot Coding Level of Care Code New Pt Level 4 (48826) Diagnoses Pes planus of both feet M21.41; M21.42 Plantar fasciitis, bilateral M72.2 Hallux rigidus of both feet M20.21; M20.22 Time Spent (min) 35
== END 2025-10-18 14:09 | disposition home or self-care (01) ==
LOC: HO.HPODS 13:23
PROVIDERS: PCP Physician Assistant Medical; Visit Provider Student in an Organized Health Care Education/Training Program
DX: M21.41 Flat foot [pes planus] (acquired), right foot (principal); M21.42 Flat foot [pes planus] (acquired), left foot; M72.2 Plantar fascial fibromatosis; M20.21 Hallux rigidus, right foot; M20.22 Hallux rigidus, left foot
CPT/HCPCS: 99204

== ENCOUNTER 2025-10-20 10:54 | Outpatient (REF) | payer OTHER, SELFPAY ==
--- NOTE | ~2025-10-20 | CT_ITS ---
CLINICAL HISTORY: R51.9 - Headache, unspecified --- Additional Notes or Special Instructions: rule out mass CT head without and with IV contrast Comparison: None Findings: No acute intracranial hemorrhage, acute major vascular distribution infarct, intracranial mass, midline shift or hydrocephalus. No extra-axial fluid collection. No abnormal contrast enhancement. Vasculature unremarkable. Visualized paranasal sinuses and mastoid air cells are unremarkable. Orbits unremarkable. No acute fracture. Superficial soft tissue is unremarkable. Impression: No acute intracranial finding or abnormal enhancement. This document has been electronically signed by: Opal Reid MD on 10/21/2025 10:33:27
[2025-10-20] MEDS: iohexoL 350 MG/ML 100 ML INFUS..BTL IV (11:28)
== END 2025-10-20 10:55 | disposition home or self-care (01) ==
LOC: HO.CT 10:54
PROVIDERS: PCP Physician Assistant Medical; Visit Provider Physician Assistant Medical
DX: R51.9 Headache, unspecified (principal)
CPT/HCPCS: 70470; Q9967